=== PATIENT | male | born 1965 | race Caucasian/White ===

== ENCOUNTER 2019-01-30 18:57 | Inpatient (IN) ==
[2019-01-30] MEDS: PROPOFOL 1,000 MG/100 ML BOTTLE IV SCH (20:45)
[2019-01-30] MEDS ORDERED: ACETAMINOPHEN 325 MG TABLET PO PRN (21:44)
[2019-01-30] MEDS ORDERED: ONDANSETRON 4 MG/2 ML VIAL IV PRN (21:44)
[2019-01-30] MEDS ORDERED: ALBUTEROL 2.5 MG/3 ML NEB RESP TX PRN (21:44)
[2019-01-30 22:14] LABS: Allen Test Positive; Pt O2 Delivery Device Ventilator
[2019-01-30 22:16] LABS: ABG Base Excess 0.2 MMOL/L (-2.5-2.5); ABG HCO3 24.6 MMOL/L (20-26); ABG Oxygen Saturation 99.4 % (95-100); ABG PCO2 43.1 MM HG (35-48); ABG PH 7.382 (7.35-7.45); ABG TCO2 21.6 MMOL/L (23-27)
[2019-01-30] MEDS: PANTOPRAZOLE 40 MG VIAL IV SCH (22:25)
[2019-01-30] MEDS: PIPERACILLIN/TAZOBACTAM 3,375 MG in SODIUM CHLORIDE 0.9% 100 ML IV SCH (22:25)
[2019-01-30] MEDS: fentaNYL INJ 1,250 MCG in SODIUM CHLORIDE 0.9% 225 ML IV PRN (22:25)
[2019-01-30] MEDS: SODIUM CHLORIDE 0.9% 1,000 ML IV SCH (22:25)
[2019-01-30 22:36] LABS: Basophils # 0.1 10*3/uL (0.0-0.2); Basophils % 0.3 % (0.0-0.8); Hemoglobin 14.8 GM/DL (14.0-18.0); Immature Granulocytes % 1.5 %; Immature Granulocytes Absolute 0.35 #; Lymphocytes # 0.5 10*3/uL (1.4-4.0); Lymphocytes % 2.2 % (21.2-54.2); Mean Corpuscular HGB Conc 32.2 GM/DL (32-36); Mean Corpuscular Volume 94.8 FL (87-102); Mean Platelet Volume 9.5 FL (9.6-12.0); Monocytes % 4.1 % (1.7-12.7); Neutrophils % 91.9 % (38.7-73.9); Platelet Count 192 T/CUMM (130-400); Red Blood Count 4.85 MC/CUMM (3.8-5.5); Red Cell Distribution Width 12.9 % (9.3-17.3)
[2019-01-30 22:47] LABS: PT Patient Result 10.8 SECS; Partial Thromboplastin Time 25.7 SECS (0-40)
[2019-01-30 22:56] LABS: Alanine Aminotransferase 88 U/L (16-61); Albumin 3.5 G/DL (3.4-5.0); Alkaline Phosphatase 106 U/L (45-117); Aspartate Amino Transferase 44 U/L (0-37); Band Neutrophils 6 % (0-10); Blood Urea Nitrogen 11 MG/DL (7-18); Eosinophils 1 % (0-10); Glucose 158 MG/DL (74-106); Osmolality,Calculated 278.5 MOS/KG (273-304); Platelet Estimate Normal; Segmented Neutrophils 91 % (50-85); Total Cells Counted 100; Total Protein 7.4 G/DL (6.4-8.3); Troponin I < 0.015 NG/ML (0.00-0.045)
[2019-01-30] MEDS ORDERED: VANCOMYCIN INJ 1,250 MG in SODIUM CHLORIDE 0.9% 250 ML IV SCH (23:00)
[2019-01-30 23:01] LABS: Thyroid Stimulating Hormone 0.465 uIU/ml (0.358-3.74)
[2019-01-30 23:04] LABS: Apearance,Urine CLOUDY (Clear); Bilirubin,Urine Negative (Negative); Blood, Urine Small mg/dL (Negative); Glucose,Urine (UA) Negative (Negative); Ketones,Urine Negative (Negative); Mucus,Urine Occasional /LPF (Occasional); Nitrite,Urine Negative (Negative); Protein,Urine Negative; Urine Color Straw (Yellow); Urine Specific Gravity 1.027 (1.001-1.035); Urine Urobilinogen < 2.0 EU/DL (0.2-1.0)
[2019-01-30] MEDS: VANCOMYCIN INJ 1,250 MG in SODIUM CHLORIDE 0.9% 250 ML IV SCH (23:31)
[2019-01-30] MEDS: ENOXAPARIN 40 MG/0.4 ML SYRINGE SUBCUT SCH (23:31)
[2019-01-31 02:07] LABS: Barbiturates Screen,Urine Negative (Negative); Benzodiazepines Screen,Urine Positive (Negative); Cannabinoid Screen,Urine Negative (Negative); Opiate Screen,Urine Negative (Negative); Phencyclidine Screen,Urine Negative (Negative)
[2019-01-31 04:02] LABS: Basophils # 0.1 10*3/uL (0.0-0.2); Basophils % 0.3 % (0.0-0.8); Hematocrit 43.3 VOL% (42.0-52.0); Hemoglobin 13.9 GM/DL (14.0-18.0); Immature Granulocytes Absolute 0.28 #; Lymphocytes % 3.5 % (21.2-54.2); Mean Corpuscular HGB Conc 32.1 GM/DL (32-36); Mean Corpuscular Volume 95.8 FL (87-102); Mean Platelet Volume 9.4 FL (9.6-12.0); Monocytes % 1.9 % (1.7-12.7); Neutrophils % 93.3 % (38.7-73.9); Platelet Count 177 T/CUMM (130-400); Red Blood Count 4.52 MC/CUMM (3.8-5.5); White Blood Count 27.7 T/CUMM (4-12)
[2019-01-31 04:19] LABS: Calcium 8.3 MG/DL (8.5-10.1); Osmolality,Calculated 277.7 MOS/KG (273-304)
[2019-01-31] MEDS: PROPOFOL 1,000 MG/100 ML BOTTLE IV SCH ×2 (05:00→14:00)
[2019-01-31 05:44] LABS: Band Neutrophils 5 % (0-10); Lymphocytes 6 % (20-55); Platelet Estimate Normal; Segmented Neutrophils 86 % (50-85); Total Cells Counted 100
[2019-01-31] MEDS: PIPERACILLIN/TAZOBACTAM 3,375 MG in SODIUM CHLORIDE 0.9% 100 ML IV SCH ×3 (06:00→21:40)
[2019-01-31] MEDS: SODIUM CHLORIDE 0.9% 1,000 ML IV SCH ×3 (06:00→22:25)
[2019-01-31] MEDS: VANCOMYCIN INJ 1,250 MG in SODIUM CHLORIDE 0.9% 250 ML IV SCH ×2 (06:56→15:24)
[2019-01-31] MEDS: methylPREDNISolone SOD SUC 40 MG/1 ML VIAL IV SCH ×2 (09:18→17:24)
[2019-01-31] MEDS: fentaNYL INJ 1,250 MCG in SODIUM CHLORIDE 0.9% 225 ML IV PRN ×2 (11:00→22:23)
[2019-01-31] MEDS: ALBUTEROL/IPRATROPIUM 3 ML NEB RESP TX SCH ×2 (15:00→18:55)
[2019-01-31] MEDS: ENOXAPARIN 40 MG/0.4 ML SYRINGE SUBCUT SCH (21:52)
[2019-01-31] MEDS: PANTOPRAZOLE 40 MG VIAL IV SCH (21:52)
[2019-02-01] MEDS: PROPOFOL 1,000 MG/100 ML BOTTLE IV SCH ×2 (01:00→23:30)
[2019-02-01] MEDS: ALBUTEROL/IPRATROPIUM 3 ML NEB RESP TX SCH ×4 (01:02→19:25)
[2019-02-01] MEDS: methylPREDNISolone SOD SUC 40 MG/1 ML VIAL IV SCH ×3 (02:43→16:32)
[2019-02-01] MEDS: VANCOMYCIN INJ 1,250 MG in SODIUM CHLORIDE 0.9% 250 ML IV SCH ×3 (02:43→18:30)
[2019-02-01 02:51] LABS: Basophils % 0.1 % (0.0-0.8); Hematocrit 38.4 VOL% (42.0-52.0); Hemoglobin 12.4 GM/DL (14.0-18.0); Immature Granulocytes % 0.8 %; Lymphocytes % 5.1 % (21.2-54.2); Mean Corpuscular HGB Conc 32.3 GM/DL (32-36); Mean Platelet Volume 10.2 FL (9.6-12.0); Monocytes % 3.8 % (1.7-12.7); Neutrophils % 90.2 % (38.7-73.9); Platelet Count 169 T/CUMM (130-400); Red Blood Count 3.96 MC/CUMM (3.8-5.5); Red Cell Distribution Width 13.2 % (9.3-17.3); White Blood Count 22.5 T/CUMM (4-12)
[2019-02-01 02:52] LABS: Immature Granulocytes Absolute 0.19 #; Lymphocytes # 1.2 10*3/uL (1.4-4.0)
[2019-02-01 03:06] LABS: ABG Base Excess -0.1 MMOL/L (-2.5-2.5); ABG HCO3 24.4 MMOL/L (20-26); ABG Oxygen Saturation 99.2 % (95-100); ABG TCO2 22.4 MMOL/L (23-27); Allen Test Positive; Pt O2 Delivery Device Ventilator
[2019-02-01 03:08] LABS: Calcium 8.2 MG/DL (8.5-10.1); Osmolality,Calculated 282.4 MOS/KG (273-304)
[2019-02-01 04:04] LABS: Band Neutrophils 3 % (0-10); Lymphocytes 6 % (20-55); Platelet Estimate Adequate; Segmented Neutrophils 89 % (50-85); Total Cells Counted 100
[2019-02-01] MEDS: PIPERACILLIN/TAZOBACTAM 3,375 MG in SODIUM CHLORIDE 0.9% 100 ML IV SCH ×3 (05:48→23:41)
[2019-02-01] MEDS: SODIUM CHLORIDE 0.9% 1,000 ML IV SCH ×3 (05:49→23:31)
[2019-02-01] MEDS: PANTOPRAZOLE 40 MG VIAL IV SCH (23:39)
[2019-02-01] MEDS: ENOXAPARIN 40 MG/0.4 ML SYRINGE SUBCUT SCH (23:44)
[2019-02-02] MEDS: ALBUTEROL/IPRATROPIUM 3 ML NEB RESP TX SCH ×4 (00:02→19:42)
[2019-02-02] MEDS: methylPREDNISolone SOD SUC 40 MG/1 ML VIAL IV SCH ×3 (02:07→17:45)
[2019-02-02 02:35] LABS: Basophils % 0.1 % (0.0-0.8); Hematocrit 41.4 VOL% (42.0-52.0); Hemoglobin 13.2 GM/DL (14.0-18.0); Immature Granulocytes % 0.6 %; Immature Granulocytes Absolute 0.13 #; Lymphocytes # 1.2 10*3/uL (1.4-4.0); Lymphocytes % 5.7 % (21.2-54.2); Mean Corpuscular HGB Conc 31.9 GM/DL (32-36); Mean Corpuscular Volume 96.7 FL (87-102); Mean Platelet Volume 9.8 FL (9.6-12.0); Monocytes % 4.7 % (1.7-12.7); Neutrophils % 88.9 % (38.7-73.9); Platelet Count 171 T/CUMM (130-400); Red Blood Count 4.28 MC/CUMM (3.8-5.5); White Blood Count 20.4 T/CUMM (4-12)
[2019-02-02 02:51] LABS: Calcium 8.8 MG/DL (8.5-10.1); Osmolality,Calculated 280.5 MOS/KG (273-304)
[2019-02-02 02:55] LABS: Lymphocytes 11 % (20-55); Segmented Neutrophils 84 % (50-85); Total Cells Counted 100
[2019-02-02 02:57] LABS: Anisocytosis Slight; Microcytosis Slight; Platelet Estimate Normal
[2019-02-02] MEDS: VANCOMYCIN INJ 1,250 MG in SODIUM CHLORIDE 0.9% 250 ML IV SCH ×3 (03:50→19:18)
[2019-02-02] MEDS: PIPERACILLIN/TAZOBACTAM 3,375 MG in SODIUM CHLORIDE 0.9% 100 ML IV SCH ×3 (06:30→22:47)
[2019-02-02] MEDS: SODIUM CHLORIDE 0.9% 1,000 ML IV SCH ×2 (15:07→20:52)
[2019-02-02 20:30] VITALS: BP 119/56
[2019-02-02] MEDS: ENOXAPARIN 40 MG/0.4 ML SYRINGE SUBCUT SCH (22:53)
[2019-02-02] MEDS: PANTOPRAZOLE 40 MG VIAL IV SCH (22:55)
[2019-02-03] MEDS: ALBUTEROL/IPRATROPIUM 3 ML NEB RESP TX SCH ×2 (00:15→07:18)
[2019-02-03] MEDS: methylPREDNISolone SOD SUC 40 MG/1 ML VIAL IV SCH ×2 (01:57→08:04)
[2019-02-03] MEDS: VANCOMYCIN INJ 1,250 MG in SODIUM CHLORIDE 0.9% 250 ML IV SCH ×2 (03:12→11:59)
[2019-02-03] MEDS: SODIUM CHLORIDE 0.9% 1,000 ML IV SCH (04:50)
[2019-02-03] MEDS: PIPERACILLIN/TAZOBACTAM 3,375 MG in SODIUM CHLORIDE 0.9% 100 ML IV SCH (06:36)
[2019-02-03] MEDS ORDERED: NICOTINE 14 MG/24 HR PATCH TRANSDERM SCH (09:00)
[2019-02-03] MEDS: PROPOFOL 1,000 MG/100 ML BOTTLE IV SCH (09:52)
== END 2019-02-03 13:02 | disposition home or self-care (01) | DRG 208 ==
LOC: SUATTDRO 20:40 → N.ICU 20:40
PROVIDERS: ADMIT Internal Medicine; ATTEND Internal Medicine

== ENCOUNTER 2021-02-12 23:16 | Inpatient (IN) ==
[2021-02-13] MEDS ORDERED: GLUCAGON 1 MG VIAL IM PRN (04:13)
[2021-02-13] MEDS ORDERED: DEXTROSE 50% 25 GM/50 ML VIAL IV PRN (04:13)
[2021-02-13] MEDS: DEXTROSE 5% NACL 0.45% 1,000 ML IV SCH ×2 (04:49→20:17)
[2021-02-13] MEDS: cefTRIAXone 2,000 MG in SODIUM CHLORIDE 0.9% 100 ML IV SCH (04:50)
[2021-02-13] MEDS: ONDANSETRON 4 MG/2 ML VIAL IV PRN (04:58)
[2021-02-13] MEDS: MORPHINE 4 MG/1 ML VIAL IV PRN ×2 (04:58→15:55)
[2021-02-13 06:01] LABS: Basophils % 0.5 % (0.0-0.8); Eosinophils # 0.1 10*3/uL (0.0-0.87); Eosinophils % 1.3 % (0.00-10.9); Hematocrit 43.2 VOL% (42.0-52.0); Hemoglobin 15.1 GM/DL (14.0-18.0); Immature Granulocytes % 0.5 %; Immature Granulocytes Absolute 0.04 #; Lymphocytes # 2.2 10*3/uL (1.4-4.0); Lymphocytes % 29.2 % (21.2-54.2); Mean Corpuscular Volume 87.1 FL (87-102); Mean Platelet Volume 11.6 FL (9.6-12.0); Monocytes % 15.8 % (1.7-12.7); Neutrophils % 52.7 % (38.7-73.9); Platelet Count 175 T/CUMM (130-400); Red Blood Count 4.96 MC/CUMM (3.8-5.5); Red Cell Distribution Width 14.9 % (9.3-17.3); White Blood Count 7.5 T/CUMM (4-12)
[2021-02-13 06:06] LABS: INR 2.7; PT Patient Result 28.1 SECS (10.5-12.0)
[2021-02-13 06:21] LABS: HDL Cholesterol < 10 MG/DL (40-60); Thyroid Stimulating Hormone 0.614 uIU/ml (0.358-3.74); Triglycerides 130 MG/DL (2-150)
[2021-02-13 06:30] LABS: Albumin 2.2 G/DL (3.4-5.0); Potassium 3.8 MMOL/L (3.5-5.1); Total Protein 5.7 G/DL (6.4-8.2)
[2021-02-13 06:34] LABS: Bilirubin,Total 15.6 MG/DL (0.2-1.0)
[2021-02-13 06:56] LABS: Band Neutrophils 4 % (0-10); Eosinophils 3 % (0-10); Hypochromasia 1+; Lymphocytes 19 % (20-55); Segmented Neutrophils 60 % (50-85); Total Cells Counted 100
[2021-02-13 06:57] LABS: Microcytosis 1+; Platelet Estimate Adequate; Target Cells Slight
[2021-02-14] MEDS: ONDANSETRON 4 MG/2 ML VIAL IV PRN (00:01)
[2021-02-14] MEDS: MORPHINE 4 MG/1 ML VIAL IV PRN ×4 (00:01→23:47)
[2021-02-14 00:16] LABS: Hepatitis B Core IgM Quant 0.12 Index; Hepatitis B Surface Ag Quant < 0.10 Index; Hepatitis B Surface Ag Result Non-Reactive (NonReactive)
[2021-02-14 00:46] LABS: Hepatitis C Virus Ab Quant > 11.00 Index; Hepatitis C Virus Ab Result Reactive (NonReactive)
[2021-02-14] MEDS: DEXTROSE 5% NACL 0.45% 1,000 ML IV SCH ×4 (03:46→21:30)
[2021-02-14] MEDS: cefTRIAXone 2,000 MG in SODIUM CHLORIDE 0.9% 100 ML IV SCH (03:46)
[2021-02-14 05:24] LABS: Basophils % 0.7 % (0.0-0.8); Eosinophils # 0.2 10*3/uL (0.0-0.87); Eosinophils % 2.7 % (0.00-10.9); Hematocrit 39.4 VOL% (42.0-52.0); Hemoglobin 13.6 GM/DL (14.0-18.0); Immature Granulocytes % 0.4 %; Immature Granulocytes Absolute 0.02 #; Lymphocytes # 1.7 10*3/uL (1.4-4.0); Lymphocytes % 31.7 % (21.2-54.2); Mean Corpuscular HGB Conc 34.5 GM/DL (32-36); Mean Corpuscular Volume 88.7 FL (87-102); Mean Platelet Volume 11.4 FL (9.6-12.0); Neutrophils % 50.5 % (38.7-73.9); Platelet Count 162 T/CUMM (130-400); Red Blood Count 4.44 MC/CUMM (3.8-5.5); Red Cell Distribution Width 14.9 % (9.3-17.3); White Blood Count 5.5 T/CUMM (4-12)
[2021-02-14 06:14] LABS: Albumin 1.7 G/DL (3.4-5.0); Calcium 7.3 MG/DL (8.5-10.1); Osmolality,Calculated 273.7 MOS/KG (273-304); Potassium 3.3 MMOL/L (3.5-5.1); Total Protein 4.8 G/DL (6.4-8.2)
[2021-02-14 06:22] LABS: Bilirubin,Total 14.7 MG/DL (0.2-1.0)
[2021-02-14] MEDS ORDERED: POTASSIUM CHLORIDE 20 MEQ TABLET PO ONE (07:17)
[2021-02-15] MEDS: cefTRIAXone 2,000 MG in SODIUM CHLORIDE 0.9% 100 ML IV SCH (04:41)
[2021-02-15 05:53] LABS: Basophils # 0.1 10*3/uL (0.0-0.2); Basophils % 0.9 % (0.0-0.8); Eosinophils # 0.2 10*3/uL (0.0-0.87); Eosinophils % 3.4 % (0.00-10.9); Hematocrit 40.8 VOL% (42.0-52.0); Hemoglobin 14.1 GM/DL (14.0-18.0); Immature Granulocytes % 0.4 %; Immature Granulocytes Absolute 0.02 #; Lymphocytes # 1.6 10*3/uL (1.4-4.0); Lymphocytes % 28.3 % (21.2-54.2); Mean Corpuscular HGB Conc 34.6 GM/DL (32-36); Mean Corpuscular Volume 89.1 FL (87-102); Mean Platelet Volume 11.7 FL (9.6-12.0); Monocytes % 11.4 % (1.7-12.7); Neutrophils % 55.6 % (38.7-73.9); Platelet Count 175 T/CUMM (130-400); Red Blood Count 4.58 MC/CUMM (3.8-5.5); Red Cell Distribution Width 15.3 % (9.3-17.3); White Blood Count 5.6 T/CUMM (4-12)
[2021-02-15 06:04] LABS: INR 2.4
[2021-02-15 06:05] LABS: PT Patient Result 25.3 SECS (10.5-12.0)
[2021-02-15 06:17] LABS: Albumin 1.8 G/DL (3.4-5.0); Calcium 7.4 MG/DL (8.5-10.1); Osmolality,Calculated 269.8 MOS/KG (273-304); Potassium 3.8 MMOL/L (3.5-5.1)
[2021-02-15 06:21] LABS: Bilirubin,Total 15.6 MG/DL (0.2-1.0)
[2021-02-15] MEDS: DEXTROSE 5% NACL 0.45% 1,000 ML IV SCH ×4 (06:34→16:19)
[2021-02-15 07:28] LABS: Eosinophils 3 % (0-10); Lymphocytes 24 % (20-55); Platelet Estimate Adequate; Segmented Neutrophils 67 % (50-85); Total Cells Counted 100
[2021-02-15] MEDS: MORPHINE 4 MG/1 ML VIAL IV PRN ×2 (11:18→19:55)
[2021-02-16] MEDS: DEXTROSE 5% NACL 0.45% 1,000 ML IV SCH ×3 (02:07→13:00)
[2021-02-16] MEDS: cefTRIAXone 2,000 MG in SODIUM CHLORIDE 0.9% 100 ML IV SCH (04:01)
[2021-02-16] MEDS: MORPHINE 4 MG/1 ML VIAL IV PRN (04:05)
[2021-02-16 06:23] LABS: Basophils # 0.1 10*3/uL (0.0-0.2); Basophils % 0.9 % (0.0-0.8); Eosinophils # 0.2 10*3/uL (0.0-0.87); Eosinophils % 3.5 % (0.00-10.9); Hematocrit 40.3 VOL% (42.0-52.0); Immature Granulocytes % 0.5 %; Immature Granulocytes Absolute 0.03 #; Lymphocytes # 1.8 10*3/uL (1.4-4.0); Lymphocytes % 32.3 % (21.2-54.2); Mean Corpuscular HGB Conc 34.7 GM/DL (32-36); Mean Platelet Volume 11.1 FL (9.6-12.0); Monocytes % 10.6 % (1.7-12.7); Neutrophils % 52.2 % (38.7-73.9); Platelet Count 188 T/CUMM (130-400); Red Blood Count 4.58 MC/CUMM (3.8-5.5); Red Cell Distribution Width 15.7 % (9.3-17.3); White Blood Count 5.7 T/CUMM (4-12)
[2021-02-16 06:37] LABS: INR 2.4; PT Patient Result 24.8 SECS (10.5-12.0)
[2021-02-16 06:44] LABS: Albumin 1.7 G/DL (3.4-5.0); Calcium 7.6 MG/DL (8.5-10.1); Potassium 3.9 MMOL/L (3.5-5.1); Total Protein 5.1 G/DL (6.4-8.2)
[2021-02-16 06:50] LABS: Hypochromasia 1+; Target Cells Slight
[2021-02-16 06:51] LABS: Burr Cells Slight; Microcytosis 1+; Platelet Estimate Adequate
[2021-02-16 06:52] LABS: Bilirubin,Total 17.1 MG/DL (0.2-1.0)
[2021-02-16 11:25] VITALS: BP 110/71
[2021-02-16 13:26] LABS: Smooth Muscle Antibody Negative (Negative)
[2021-02-16 14:31] LABS: Antinuclear Ab, S 0.9 U
== END 2021-02-16 14:45 | disposition home or self-care (01) | DRG 443 ==
LOC: N.3E 02-13 00:33 → SUATTDRO 02-13 00:33
PROVIDERS: ADMIT Internal Medicine; ATTEND Hospitalist